=== PATIENT | female | born 1980 | race Caucasian/White ===

== ENCOUNTER 2016-07-17 07:09 | Day surgery (SDC) | payer OTHER ==
--- NOTE | 2016-07-16 20:38 | PCM.HP ---
H&P History of Present Illness - General Date of Service: 07/17/16 Admit Problem/Dx: 1. Menorrhagia 2. Intramenstrual bleeding Source of Information: Patient History Limitations: Reports: No limitations - History of Present Illness Initial Comments - Free Text/Narative: Sherie is a 35-year-old 1 para 1002 white female who was referred by her nurse practitioner, Peg Barrow, at [facility] in [facility], [place] for complaints of heavy uterine bleeding. She reports the bleeding started about a year ago and that her cycles will come every 10 days. She bleeds for approximately 7 days. She was started on control pills in April to treat this and this stopped the bleeding until approximately May. On June 01 she discontinued the pills and start flowing very heavily having this size clots. She feels pressure near the vagina. She denies any incontinence of bowel or bladder. This was followed by near continuous bleeding. This is done the same as it has been from last 6-12 months with at least 2 cycles each month lasting up to 9 days each but usually 5-7 days in length. Patient's had significant cramps with the bleeding. She has had gushing with her menstrual cycle. She is admitted at this time for a laparoscopically assisted total vaginal hysterectomy with bilateral salpingectomy possible total abdominal hysterectomy with bilateral salpingectomy. 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 Her twins were one female Valeri and one male Jeffery. She is sexually active and not bleeding. She has had a tubal ligation for control, this being done at the time of her section. No ST eyes noted. No abnormal Pap smears noted. Last Pap smear was within the last year. Allergies: none Medications: none Past medical history: 1. Menorrhagia 2. History of obesity status post bariatric surgery Past surgical history: 1. for twins/first twin-breech 2. Lap banding procedure 2005 with approximately 100 pound weight loss 3. laparoscopic cholecystectomy 2002 4. Tubal ligation at the time of section. Family history: mother is alive and in good health. Father is alive but has adult onset diabetes mellitus and hypertension. 1 sisters alive and well. maternal grandmother is secondary to some type of cancer. She did have a hysterectomy due to benign bleeding reasons. Paternal grandfather secondary to an NV. Maternal grandfather secondary to brain cancer. Paternal grandfather secondary to colon cancer. No bleeding, clotting, female cancer abnormalities noted in the family. No anesthesia problems noted either. Social history: Patient is , lives in a monitored setting [place]. 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 She denies any significant use of alcohol, drugs or tobacco. Review of systems. In general patient has had some fatigue especially when she starts bleeding. Does note it improves in between bleeding. Eyes: Normal ENT: Normal Vascular: Normal Respiratory: Normal Gastrointestinal: Normal Genital: Menstrual bleeding, pelvic pressure, dysmenorrhea. Please see history of present illness. Urinary: Normal Musculoskeletal: Normal Integumentary: Normal Neurological: Normal Psychiatric: Normal Endocrine: Normal Lymphatics: Normal Neurologic: Normal Physical exam: In general patient is a well-developed, well-nourished, pleasant field stapes no acute distress. She is alert and oriented x3 and appears his stated age. Skin is warm and dry without lesions. Patient has additional redundant skin folds as she is at a massive weight loss of approximately 150 pounds after her lap band procedure. HEENT neck and back are within normal limits. Lungs are clear with good breath sounds in all lung clemente. Cardiovascular exam shows regular rate and rhythm without murmurs. Breasts exam is deferred. Abdomen is moderately overweight, soft, nontender without apparent masses or organomegaly. Does not appear to have any hernias or inguinal lymphadenopathy. Positive bowel sounds are noted. Genital exam her speculum and bimanual shows normal external genitalia, BUS, ureter pattern. There is blood in the vaginal vault on last evaluation done at the end of May. She is actively bleeding at the time of the exam. Cervix is nulliparous in appearance. No abnormalities noted. Uterus is approximately 7 weeks size. It is very posteriorly position. Is moderately tender with palpation. No adnexal abnormalities or parametrial induration is noted. Extremities and neurological exam within normal limits. Laboratory testing: Vitamin B12 level decreased at 1 64 pg/mL. Estradiol 5 34 pg /mL. Progesterone 0.33 ng/mL. Total iron of 14 mcg/dL-low, transferrin is normal at 306 mg/dL. Total iron-binding capacity is at 420 mcg/dL-normal. Iron saturation is at 3.3%-which is low with normals between 20.0 and 50.0%. Ferritin is low at 2 ng/mL. Vitamin D level is low at 24. Ultrasound: Pelvic ultrasound done in radiology via transvaginal approach shows a uterus which is upper limits of normal size. There is a normal endometrial stripe. There are 2 uterine fibroids present one being 3.1 cm in diameter and in the intramural area and one in the endometrial location being 1.7 cm in diameter. Ovaries are normal bilaterally with no evidence of significant cysts or masses. No free fluid noted in the posterior cul-de-sac. Fibroids noted as possible etiology component of her bleeding. H&P Review of Systems - Review of Systems: Review Of Systems: See Below Exam - Exam Exam: See Below - Patient Data Lab Results last 24 hrs: Laboratory Results - last 24 hr 07/16/16 07/16/16 07/16/16 Range/Units 15:23 15:23 15:23 WBC 6.01 (3.98-10.04) K/mm3 RBC 4.67 (3.98-5.22) M/mm3 Hgb 10.1 L (11.2-15.7) gm/L Hct 33.6 L (34.1-44.9) % MCV 71.9 L (79.4-94.8) fl MCH 21.6 L (25.6-32.2) pg MCHC 30.1 L (32.2-35.5) g/dl RDW Std Deviation 43.0 (36.4-46.3) fL Plt Count 284 (182-369) K/mm3 MPV 9.1 L (9.4-12.3) fl Neut % (Auto) 53.0 (34.0-71.1) % Lymph % (Auto) 38.3 (19.3-51.7) % [place] % (Auto) 6.0 (4.7-12.5) % Eos % (Auto) 2.0 (0.7-5.8) Baso % (Auto) 0.5 (0.1-1.2) % Neut # 3.19 (1.56-6.13) K/mm3 Lymph # 2.30 (1.18-3.74) K/mm3 [place] # 0.36 (0.24-0.36) K/mm3 Eos # 0.12 (0.04-0.36) K/mm3 Baso # 0.03 (0.01-0.08) K/mm3 Manual Slide Review Abnormal smear Creatinine 0.6 (0.55-1.02) mg/dL Est Cr Clr Drug Dosing TNP Estimated GFR (MDRD) > 60 (>60) mL/min Urine Color Yellow (Yellow) Urine Appearance Clear (Clear) Urine pH 6.5 (5.0-8.0) Ur Specific [place] > or = 1.030 (1.005-1.030) Urine Protein Negative (Negative) Urine Glucose (UA) Negative (Negative) Urine Ketones Negative (Negative) Urine Occult Blood Negative (Negative) Urine Nitrite Negative (Negative) Urine Bilirubin Negative (Negative) Urine Urobilinogen 0.2 (0.2-1.0) Ur Leukocyte Esterase Negative (Negative) Urine HCG, Qual (NEGATIVE) Blood Type Gel Antibody Screen 07/16/16 07/16/16 Range/Units 15:23 15:23 WBC (3.98-10.04) K/mm3 RBC (3.98-5.22) M/mm3 Hgb (11.2-15.7) gm/L Hct (34.1-44.9) % MCV (79.4-94.8) fl MCH (25.6-32.2) pg MCHC (32.2-35.5) g/dl RDW Std Deviation (36.4-46.3) fL Plt Count (182-369) K/mm3 MPV (9.4-12.3) fl Neut % (Auto) (34.0-71.1) % Lymph % (Auto) (19.3-51.7) % [place] % (Auto) (4.7-12.5) % Eos % (Auto) (0.7-5.8) Baso % (Auto) (0.1-1.2) % Neut # (1.56-6.13) K/mm3 Lymph # (1.18-3.74) K/mm3 [place] # (0.24-0.36) K/mm3 Eos # (0.04-0.36) K/mm3 Baso # (0.01-0.08) K/mm3 Manual Slide Review Creatinine (0.55-1.02) mg/dL Est Cr Clr Drug Dosing Estimated GFR (MDRD) (>60) mL/min Urine Color (Yellow) Urine Appearance (Clear) Urine pH (5.0-8.0) Ur Specific [place] (1.005-1.030) Urine Protein (Negative) Urine Glucose (UA) (Negative) Urine Ketones (Negative) Urine Occult Blood (Negative) Urine Nitrite (Negative) Urine Bilirubin (Negative) Urine Urobilinogen (0.2-1.0) Ur Leukocyte Esterase (Negative) Urine HCG, Qual Negative (NEGATIVE) Blood Type O NEGATIVE Gel Antibody Screen Negative Result Diagrams: 07/16/16 15:23 07/16/16 15:23 *Q Meaningful Use (ADM) - VTE *Q VTE Criteria *Q: - Stroke *Q Stroke Criteria *Q: - AMI *Q AMI Criteria *Q: Problem List Initiated/Reviewed/Updated: Yes Orders Last 24hrs: Active Orders 24 hr Category Date Time Status Peripheral IV Care [RC] . DIRECTED Care 07/17/16 00:01 Active Verify Patient Consent Obtain [RC] ASDIRECTED Care 07/17/16 00:01 Active HCG QUALITATIVE,URINE [URCHEM] Stat Lab 07/17/16 00:01 Uncollected PATIENT RETYPE [BBK] Routine Lab 07/16/16 15:23 Results TYPE AND SCREEN [BBK] Routine Lab 07/16/16 15:23 Results Lactated Ringers [Ringers, Lactated] 1,000 ml Med 07/17/16 00:01 Pending IV ASDIRECTED Lidocaine 1%/Sod Bicarbonate [Buffered Lidocaine 1% in Med 07/17/16 00:01 Ordered NS 8.4%] 0.25 ml IV ONETIME PRN Sodium Chloride 0.9% [Saline Flush] Med 07/17/16 00:01 Ordered 10 ml FLUSH ASDIRECTED PRN Medication Administration Instruction [OM.PC] Routine Oth 07/17/16 00:01 Ordered Peripheral IV Insertion Adult [OM.PC] Routine Oth 07/17/16 00:01 Ordered Medication Orders Lactated Ringer's (Ringers, Lactated) 1,000 mls @ 125 mls/hr IV ASDIRECTED YEIMY Stop: 07/17/16 23:00 Lidocaine/Sodium Bicarbonate (Buffered Lidocaine 1% In Ns 8.4%) 0.25 ml IV ONETIME PRN PRN Reason: Prior to IV Start Stop: 07/17/16 18:00 Sodium Chloride (Saline Flush) 10 ml FLUSH ASDIRECTED PRN PRN Reason: Keep Vein Open Stop: 07/17/16 18:00 Assessment/Plan Comment:: Assessment: 1. Abnormal uterine bleeding with menorrhagia and intermenstrual bleeding with enlargement of the uterus secondary to fibroids. 2. iron deficiency anemia secondary to chronic menstrual blood loss. 3. Status post tubal ligation. 4. Resections for surgery include history of previous section, history of lap band procedure, history of laparoscopic cholecystectomy. Plan: 1. After options of therapy are discussed with patient including monitoring with iron supplementation, hormonal suppression, endometrial ablation and laparoscopic assisted vaginal hysterectomy with possible bilateral salpingectomy possible total abdominal hysterectomy with possible bilateral salpingectomy patient has opted for the last option. Procedure, risks, benefits , limitations and followup were discussed in detail with the patient. She appears to understand, has signed the consent and wishes to proceed. Patient is aware that she will not be able to procreate. Also that she will not have her periods. 2. DVT prophylaxis with SCDs 3. Infection prophylaxis with Ancef 2 g IV preop 4. Preoperative evaluation consist of CBC, comprehensive metbolic profile, creatinine, urinalysis, & screen, urine test.
[~2016-07-17 07:09] MED LIST: Lidocaine 1%/Sod Bicarbonate in NS 8.4% 1 ML Syringe IV PRN; Sodium Chloride 0.9% 10 ML Syringe FLUSH PRN
[2016-07-17] MEDS ORDERED: Lidocaine 1% with EPINEPHrine 1:100,000 20 ML MDV ONE (07:27)
[2016-07-17] MEDS ORDERED: Sodium Chloride 0.9% 50 ML SDV ONE (07:27)
[2016-07-17] MEDS ORDERED: Bupivacaine 0.5% 30 ML SDV ONE (07:27)
[2016-07-17] MEDS: Lactated Ringers 1,000 ML IV SCH ×2 (07:35→11:06)
--- NOTE | 2016-07-17 08:05 | PCM.PREANE ---
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 Respiratory: Reports: no symptoms Cardiovascular: Reports: no symptoms GI: Reports: no symptoms Other: Reports: none - PHYSICAL ASSESSMENT HR: 74 O2 Sat by Pulse Oximetry: 100 RR: 16 BP: 124/75 Temp: 37.0 C Vital Signs: Last Vital Signs Temp 37.0 C 07/17/16 07:20 Pulse 74 07/17/16 07:20 Resp 16 07/17/16 07:20 BP 129/75 07/17/16 07:20 Pulse Ox 100 07/17/16 07:20 Height: 1.63 m Weight: 79.379 kg NPO Status Date: 07/16/16 NPO Status Time: 22:30 ASA Class: 2 Mental Status: alert & oriented x3 Airway Class: Mallampati = 1 Dentition: Reports: crown(s) Thyro-Mental Finger Breadths: 3 Mouth Opening Finger Breadths: 3 ROM/Head Extension: full Respiratory Status: lungs clear to auscultation bilaterally Cardiovascular Status: regular rate & rhythm, normal S1, S2, no murmur, blood pressure WNL - LAB Values: Laboratory Last Values WBC 6.01 K/mm3 (3.98-10.04) 07/16/16 15:23 RBC 4.67 M/mm3 (3.98-5.22) 07/16/16 15:23 Hgb 10.1 gm/L (11.2-15.7) L 07/16/16 15:23 Hct 33.6 % (34.1-44.9) L 07/16/16 15:23 MCV 71.9 fl (79.4-94.8) L 07/16/16 15:23 MCH 21.6 pg (25.6-32.2) L 07/16/16 15:23 MCHC 30.1 g/dl (32.2-35.5) L 07/16/16 15:23 RDW Std Deviation 43.0 fL (36.4-46.3) 07/16/16 15:23 Plt Count 284 K/mm3 (182-369) 07/16/16 15:23 MPV 9.1 fl (9.4-12.3) L 07/16/16 15:23 Neut % (Auto) 53.0 % (34.0-71.1) 07/16/16 15:23 Lymph % (Auto) 38.3 % (19.3-51.7) 07/16/16 15:23 [place] % (Auto) 6.0 % (4.7-12.5) 07/16/16 15:23 Eos % (Auto) 2.0 (0.7-5.8) 07/16/16 15:23 Baso % (Auto) 0.5 % (0.1-1.2) 07/16/16 15:23 Neut # 3.19 K/mm3 (1.56-6.13) 07/16/16 15:23 Lymph # 2.30 K/mm3 (1.18-3.74) 07/16/16 15:23 Hill # 0.36 K/mm3 (0.24-0.36) 07/16/16 15:23 Eos # 0.12 K/mm3 (0.04-0.36) 07/16/16 15:23 Baso # 0.03 K/mm3 (0.01-0.08) 07/16/16 15:23 Manual Slide Review Abnormal smear 07/16/16 15:23 Sodium 140 mEq/L (136-145) 07/16/16 15:38 Potassium 3.4 mEq/L (3.5-5.1) L 07/16/16 15:38 Chloride 106 mEq/L (98-107) 07/16/16 15:38 Carbon Dioxide 27 mEq/L (21-32) 07/16/16 15:38 Anion Gap 10.4 (5-15) 07/16/16 15:38 BUN 10 mg/dL (7-18) 07/16/16 15:38 Creatinine 0.7 mg/dL (0.55-1.02) 07/16/16 15:38 Est Cr Clr Drug Dosing TNP 07/16/16 15:38 Estimated GFR (MDRD) > 60 mL/min (>60) 07/16/16 15:38 BUN/Creatinine Ratio 14.3 (14-18) 07/16/16 15:38 Glucose 91 mg/dL (74-106) 07/16/16 15:38 Calcium 8.6 mg/dL (8.5-10.1) 07/16/16 15:38 Total Bilirubin 0.2 mg/dL (0.2-1.0) 07/16/16 15:38 AST 13 U/L (15-37) L 07/16/16 15:38 ALT 22 U/L (14-59) 07/16/16 15:38 Alkaline Phosphatase 76 U/L (46-116) 07/16/16 15:38 Total Protein 7.5 g/dl (6.4-8.2) 07/16/16 15:38 Albumin 3.7 g/dl (3.4-5.0) 07/16/16 15:38 Globulin 3.8 gm/dL 07/16/16 15:38 Albumin/Globulin Ratio 1.0 (1-2) 07/16/16 15:38 Urine Color Yellow (Yellow) 07/16/16 15:23 Urine Appearance Clear (Clear) 07/16/16 15:23 Urine pH 6.5 (5.0-8.0) 07/16/16 15:23 Ur Specific [place] > or = 1.030 (1.005-1.030) 07/16/16 15:23 Urine Protein Negative (Negative) 07/16/16 15:23 Urine Glucose (UA) Negative (Negative) 07/16/16 15:23 Urine Ketones Negative (Negative) 07/16/16 15:23 Urine Occult Blood Negative (Negative) 07/16/16 15:23 Urine Nitrite Negative (Negative) 07/16/16 15:23 Urine Bilirubin Negative (Negative) 07/16/16 15:23 Urine Urobilinogen 0.2 (0.2-1.0) 07/16/16 15:23 Ur Leukocyte Esterase Negative (Negative) 07/16/16 15:23 Urine HCG, Qual Negative (NEGATIVE) 07/16/16 15:23 Blood Type O NEGATIVE 07/16/16 15:23 Gel Antibody Screen Negative 07/16/16 15:23 - ALLERGIES Allergies/Adverse Reactions: Allergies Allergy/AdvReac Type Severity Reaction Status Date / Time No Known Allergies Allergy Verified 07/17/16 07:41 - ANESTHESIA PLAN Preop Beta Robert: No Anesthesia Type Planned: general anesthesia - ACKNOWLEDGEMENTS Pt an appropriate candidate for the planned anesthesia: Yes Alternatives and risks of anesthesia discussed w pt/guardian: Yes Pt/Guardian understands and agree with anesthesia plan: Yes PreAnesthesia Questionnaire - Past Surgical History GI Surgical History: Reports: Cholecystectomy, Other (see below) Other GI Surgeries/Procedures: lap band procedure Female Surgical History: Reports: section, Tubal ligation - SUBSTANCE USE Smoking Status *Q: Never Smoker Tobacco Use Within Last Twelve Months: No Second Hand Smoke Exposure: No Days Per Week of Alcohol Use: 0 Number of Drinks Per Day: 0 Total Drinks Per Week: 0 Recreational Drug Use History: No - HOME MEDS Home Medications: Home Meds Norethindrone [Aygestin] 1 tab PO DAILY 07/17/16 [History] - CURRENT (IN HOUSE) MEDS Current Meds: Current Medications Lactated Ringer's (Ringers, Lactated) 1,000 mls @ 125 mls/hr IV ASDIRECTED YEIMY Stop: 07/17/16 23:00 Last Admin: 07/17/16 07:35 Dose: 125 mls/hr Lidocaine/Sodium Bicarbonate (Buffered Lidocaine 1% In Ns 8.4%) 0.25 ml IV ONETIME PRN PRN Reason: Prior to IV Start Stop: 07/17/16 18:00 Last Admin: 07/17/16 07:35 Dose: 0.25 ml Sodium Chloride (Saline Flush) 10 ml FLUSH ASDIRECTED PRN PRN Reason: Keep Vein Open Stop: 07/17/16 18:00 Discontinued Medications Bupivacaine HCl (Marcaine 0.5%) Confirm Administered Dose 30 ml .ROUTE .STK-MED ONE Stop: 07/17/16 07:28 Lidocaine/Epinephrine (Xylocaine 1% With Epinephrine 1:100,000) Confirm Administered Dose 20 ml .ROUTE .STK-MED ONE Stop: 07/17/16 07:28 Sodium Chloride (Normal Saline) Confirm Administered Dose 50 ml .ROUTE .STK-MED ONE Stop: 07/17/16 07:28
[2016-07-17] MEDS ORDERED: Rocuronium 50 MG/5 ML Vial ONE (08:23)
[2016-07-17] MEDS ORDERED: Midazolam 1 MG/ML 2 ML SDV ONE (08:23)
[2016-07-17] MEDS ORDERED: Ondansetron 4 MG/2 ML SDV ONE (08:23)
[2016-07-17] MEDS ORDERED: Lidocaine 1% 2 ML SDV ONE (08:23)
[2016-07-17] MEDS ORDERED: Propofol 200 MG/20 ML SDV ONE (08:23)
[2016-07-17] MEDS ORDERED: fentaNYL 250 MCG/5 ML SDV ONE (08:23)
[2016-07-17] MEDS ORDERED: ceFAZolin 1 GM Vial ONE (08:27)
[2016-07-17] MEDS ORDERED: diphenhydrAMINE 50 MG/ML SDV ONE (09:29)
[2016-07-17] MEDS ORDERED: Dexamethasone 4 MG/ML 5 ML MDV ONE (09:29)
[2016-07-17] MEDS ORDERED: HYDROmorphone 1 MG/ML Syringe ONE (09:36)
[2016-07-17] MEDS ORDERED: Lactated Ringers 1,000 ML ONE ×2 (09:47→11:02)
[2016-07-17] MEDS ORDERED: fentaNYL 100 MCG/2 ML SDV ONE ×2 (10:27→10:58)
[2016-07-17] MEDS ORDERED: Atropine 0.4 MG/ML SDV ONE (10:48)
[2016-07-17] MEDS ORDERED: Acetaminophen/oxyCODONE 325-5 MG Tab PO PRN (11:02)
[2016-07-17] MEDS ORDERED: Ondansetron 4 MG/2 ML SDV IVPUSH PRN (11:03)
--- NOTE | 2016-07-17 11:12 | PCM.OPNOTE ---
- General Post-Op/Procedure Note Date of Surgery/Procedure: 07/17/16 Operative Procedure(s): Laparoscopically assisted total vaginal hysterectomy with bilateral salpingectomy, lysis of pelvic adhesions Findings: 1. Uterine enlargement 2. Uterine fibroids 3. Pelvic adhesions Pre Op Diagnosis: 1. Menorrhagia. 2. Intermenstrual bleeding. 3. Uterine fibroids Post-Op Diagnosis: Same as preop with addition of pelvic adhesions Anesthesia Technique: General ET tube, Local Other Anesthesia Type: Marcaine 0.5%-abdominal incisions, lidocaine quarter percent with epinephri Primary Surgeon: Chuck Lane Secondary Surgeon: Didier Chand Anesthesia Provider: Stanislaw Vega Pathology: Uterus with bilateral fallopian tubes attached Fluid Replacement, Intraop: 2,000 Output, Urine Amount: 125 EBL in mLs: 175 Condition: Good Free Text/Narrative:: Surgery duration: 88 minutes Complications: None Condition: Good Procedure: The patient was taken to the operating room and placed in supine position on the operating table. She received 2 g of Ancef preoperatively for infection prophylaxis. She had sequential compression stockings in place for DVT prophylaxis. She was administered general endotracheal anesthesia. After adequate anesthesia the patient was placed in a dorsal lithotomy position and prepped and draped in the usual fashion for this procedure. The uterine manipulator was then placed in usual fashion. Pozo catheter was placed. Laparoscopy was then performed with the infraumbilical and suprapubic 5 mm port sites being developed with infiltration with Marcaine 0.5% 3-5 cc each. Verres needle was used to create a pneumoperitoneum using approximately 3 L of CO2. Laparoscopic sleeve and trocar were then placed without incident. Laparoscope was placed and the suprapubic site was developed with direct visualization with the scope. Eventually 2 other lateral 5 millimeter sites were developed under direct visualization also in the same fashion. The right fallopian tube and the left fallopian tube were found to be status post tubal ligation. Left fallopian tube fimbria was adhered to the left end of the old Pfannenstiel incision scarr on the anterior abdominal wall. The sigmoid colon was also adhered to this area within wispy adhesion.. The right fallopian tube was taken down by crossclamping the mesosalpinx and using the Ethicon enseal device. The dissection was carried down to the triple ligament including the broad ligament, the ovarian ligament and round ligament were then taken down in a routine fashion using the same cautery system system. Broad ligament was then taken down to the level of the uterine vasculature and uterine vasculature on the right side was then crossclamped and cauterized. Care was taken to avoid the ureter which was identified prior to the broad ligament development. The same procedure was done on the left side and was removed with the specimen.. At this point the anterior bladder flap was then developed and the bladder was pushed back off using sharp and blunt dissection. At this time the uterus was removed vaginally. The patient was repositioned weighted speculum was placed in the vagina. The cervix is infiltrated with lidocaine quarter percent with epinephrine-20 cc total. A full circumference incision was made through the vaginal epithelium and the bladder blade flap was pushed well back off the cervix. Posterior cul-de-sac was entered sharply. Left uterosacral ligament was then taken down using a LigaSure vaginal clamp system. It was done on the right side. The cardinal ligaments was taken down to the level of the uterine vasculature which had already been developed. At this time the specimen was completely removed. The vaginal cuff was then run for hemostatic reasons from approximately 2:00 to the 10:00 position posteriorly using 0 Monocryl suture in a running locked fashion. At this time hemostasis was confirmed and sponge, instrument and needle counts were correct. The peritoneal cavity was then closed using a pursestring suture externalized and pedicles in case of bleeding. Vaginal cuff was closed with 0 Monocryl in a running locked suture from right to left side. Recheck of the abdominal/pelvic area was then again undertaken. The laparoscope was again placed and pneumoperitoneum was reestablished. It should be noted gloves were changed a prior to this portion of the procedure. Small capillary bleeder was noted at the area of the right ovary as it approached the right broad ligament area. This was cauterized. The blood was in the posterior cul-de- sac was evacuated with the suction aspirator. The area was rinsed with normal saline. Hemostasis was confirmed. Sponge instrument needle counts are correct at this time. Hemostasis was confirmed no abnormalities were noted and at this time procedures discontinued. The 5 mm port port sleeves were removed without incident. The upper sleeve was removed after pneumoperitoneum was reversed. Each of these incisions closed with a single interrupted suture of 4-0 Monocryl. There further approximated with Dermabond skin glue. Patient had Pozo catheter removed at the end of the procedure. She was awakened from general endotracheal anesthesia after being referred returned to a supine position and tolerated procedure well. She left the operating room in good condition.
--- NOTE | 2016-07-17 11:12 | PCM.POSTAN ---
POST ANESTHESIA ASSESSMENT - MENTAL STATUS Mental Status: somnolent - VITAL SIGNS Pulse Rate: 66 SaO2: 100 Resp Rate: 8 Blood Pressure: 114/72 Temperature: 36.2 C - RESPIRATORY Respiratory Status: respiratory rate WNL, airway patent, O2 saturation stable, supplemental oxygen - CARDIOVASCULAR CV Status: pulse rate WNL, blood pressure stable - GASTROINTESTINAL GI Status: no symptoms - PAIN Pain Score: 0 - POST OP HYDRATION Hydration Status: adequate & stable - OBSERVATIONS Free Text/Narrative:: no anesthesia complications noted
[2016-07-17] MEDS ORDERED: Ketorolac 30 MG/ML SDV IVPUSH SCH (11:15)
[2016-07-17] MEDS ORDERED: Meperidine PF 50 MG/ML Syringe ONE (12:09)
[2016-07-17] MEDS ORDERED: fentaNYL 100 MCG/2 ML SDV IVPUSH PRN (12:10)
[2016-07-17] MEDS ORDERED: HYDROmorphone 0.5 MG/0.5 ML Syringe IVPUSH PRN (12:10)
[2016-07-17] MEDS ORDERED: Meperidine PF 50 MG/ML Syringe IM ONE (12:48)
[2016-07-17 15:24] VITALS: BP 132/75
== END 2016-07-17 15:20 | disposition home or self-care (01) ==
LOC: JD.SDS 07:09
PROVIDERS: ATTEND Obstetrics & Gynecology
DX: N84.0 Polyp of corpus uteri (principal); E66.9 Obesity, unspecified; Z98.84 Bariatric surgery status; Z90.49 Acquired absence of other specified parts of digestive tract; Z98.51 Tubal ligation status
CPT/HCPCS: 36415; 58552; 80053; 81003; 81025; 82565; 85025; 86850; 86900; 86901; 88307; A9270; J0461; J0690; J1100; J1170; J1200; J1885; J2175; J2250; J2405; J3010; J7120; 00944; J2704